=== PATIENT | female | born 1955 | race Asian ===

== ENCOUNTER 2017-09-02 11:54 | Emergency (ER) | payer BC ==
[~2017-09-02] VITALS: Ht 162.6 cm; Wt 81.6 kg
[2017-09-02 12:13] VITALS: TEMP 97
[2017-09-02] MEDS ORDERED: TRIBENZO4 PO (12:16)
[2017-09-02] MEDS ORDERED: FORTAMET1000 MG PO (12:16)
[2017-09-02 14:02] VITALS: BP 121/71
== END 2017-09-02 14:05 | disposition home or self-care (01) ==
LOC: ED 11:54
DX: I16.0 Hypertensive urgency (principal)
CPT/HCPCS: 36415; 84484; 96374; 99283; J0360

== ENCOUNTER 2018-07-04 08:01 | Outpatient (CLI) | payer BC ==
[~2018-07-04 08:01] MED LIST: FORTAMET1000 MG PO; TRIBENZO4 PO
== END 2018-07-04 22:37 | disposition home or self-care (01) ==
LOC: MAMMO 08:01
DX: Z12.31 Encounter for screening mammogram for malignant neoplasm of breast (principal)

== ENCOUNTER 2018-07-27 08:26 | Outpatient (CLI) | payer BC | END 2018-07-27 20:10 | disposition home or self-care (01) | LOC: MAMMO 08:26 | DX: R92.8 Other abnormal and inconclusive findings on diagnostic imaging of breast (principal) ==

== ENCOUNTER 2019-08-23 09:05 | Outpatient (CLI) | payer BC | END 2019-08-23 19:50 | disposition home or self-care (01) | LOC: MAMMO 09:05 | DX: Z12.31 Encounter for screening mammogram for malignant neoplasm of breast (principal) ==

== ENCOUNTER 2021-06-23 10:32 | Outpatient (CLI) | payer BC | END 2021-06-23 19:27 | disposition home or self-care (01) | LOC: RAD 10:32 | PROVIDERS: ATTEND Nurse Practitioner | DX: M54.41 Lumbago with sciatica, right side (principal); M54.42 Lumbago with sciatica, left side ==

== ENCOUNTER 2021-07-01 09:17 | Outpatient (CLI) | payer BC | END 2021-07-01 20:05 | disposition home or self-care (01) | LOC: MRI 09:17 | PROVIDERS: ATTEND Internal Medicine | DX: M54.42 Lumbago with sciatica, left side (principal); M54.41 Lumbago with sciatica, right side ==

== ENCOUNTER 2021-07-09 13:48 | Outpatient (CLI) | payer BC | END 2021-07-09 19:00 | disposition home or self-care (01) | LOC: US 13:48 | PROVIDERS: ATTEND Internal Medicine | DX: I73.9 Peripheral vascular disease, unspecified (principal) ==

== ENCOUNTER 2022-08-21 13:31 | Emergency (ER) | payer OTHER ==
[~2022-08-21] VITALS: Ht 162.6 cm; Wt 72.6 kg
[2022-08-21 13:50] VITALS: TEMP 98
[2022-08-21 16:42] VITALS: BP 178/88
== END 2022-08-21 16:35 | disposition home or self-care (01) ==
LOC: ED 13:31
DX: S40.022A Contusion of left upper arm, initial encounter (principal); S50.12XA Contusion of left forearm, initial encounter; M25.512 Pain in left shoulder; W18.09XA Striking against other object with subsequent fall, initial encounter; Y92.512 Supermarket, store or market as the place of occurrence of the external cause
CPT/HCPCS: 99283; J1885

== ENCOUNTER 2023-02-18 09:41 | Outpatient (CLI) | payer OTHER | END 2023-02-18 18:57 | disposition home or self-care (01) | LOC: RAD 09:41 | PROVIDERS: ATTEND Internal Medicine | DX: Z12.31 Encounter for screening mammogram for malignant neoplasm of breast (principal); Z13.820 Encounter for screening for osteoporosis; N95.8 Other specified menopausal and perimenopausal disorders ==